=== PATIENT | male | born 1980 | race Caucasian/White ===

== ENCOUNTER 2017-01-22 19:42 | Emergency (ER) | payer MEDICAID ==
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
== END 2017-01-22 20:05 | disposition home or self-care (01) ==
LOC: ER 19:42
DX: L73.1 Pseudofolliculitis barbae (principal); B35.4 Tinea corporis
CPT/HCPCS: 99282

== ENCOUNTER 2017-03-31 21:52 | Emergency (ER) | payer MEDICAID ==
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
== END 2017-03-31 23:15 | disposition home or self-care (01) ==
LOC: ER 21:52
DX: H61.21 Impacted cerumen, right ear (principal)
CPT/HCPCS: 99282

== ENCOUNTER 2017-06-21 16:44 | Emergency (ER) | payer MEDICAID ==
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
[2017-06-21 17:56] LABS: BASO % 0.3 % (0-6); EOS % 4.1 % (0-6); GRAN % 65.3 % (47-80); HEMATOCRIT 42.4 % (42.0-52.0); HEMOGLOBIN 14.2 gm/dl (14.0-18.0); LYMPH % 22.8 % (16-45); MEAN CORPUSCULAR HEMOGLOBIN 28.1 pg (27-33); MEAN CORPUSCULAR HGB CONC 33.5 g/dl (32-36); MEAN PLATELET VOLUME 9.4 fl (7.4-10.4); MONO % 7.5 % (0-9); PLATELET COUNT 224 K/uL (130-400); RED BLOOD COUNT 5.05 M/uL (4.40-5.70); RED CELL DISTRIBUTION WIDTH 13.4 % (11.5-14.5); WHITE BLOOD COUNT W/O DIFF 6.4 K/uL (4.2-12.2)
[2017-06-21 18:10] LABS: BLOOD UREA NITROGEN 20 mg/dL (6-20); CREATININE 0.8 mg/dL (0.7-1.2); EST GLOMERULAR FILTRATION RATE > 60 mL/min; GLUCOSE,RANDOM 110 mg/dL (74-109)
== END 2017-06-21 18:35 | disposition home or self-care (01) ==
LOC: ER 16:44
DX: I10 Essential (primary) hypertension (principal); R51 Headache; R42 Dizziness and giddiness
CPT/HCPCS: 80048; 84484; 85025; 99283

== ENCOUNTER 2018-12-03 22:29 | Emergency (ER) | payer MEDICAID ==
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
== END 2018-12-03 23:54 | disposition home or self-care (01) ==
LOC: ER 22:29
DX: S61.214A Laceration without foreign body of right ring finger without damage to nail, initial encounter (principal); H61.23 Impacted cerumen, bilateral; W29.8XXA Contact with other powered hand tools and household machinery, initial encounter; I10 Essential (primary) hypertension; F17.210 Nicotine dependence, cigarettes, uncomplicated
CPT/HCPCS: 12002; 99283; 99284